=== PATIENT | female | born 1990 | race Caucasian/White ===

== ENCOUNTER → 2017-04-11 | Outpatient (CLI) | payer BC ==
--- NOTE | 2017-04-11 11:56 | DIAGNOSTIC IMAGING REPORT ---
RIGHT TIBIA/FIBULA 2 VIEWS ROUTINE CLINICAL HISTORY: PAIN IN LOWER RIGHT LEG Right pain COMPARISON: None. DISCUSSION: Cortical thickening posterior aspect mid tibial shaft associated with a small linear subcortical lucency. This is consistent with a stress fracture and or healing stress fracture. No additional anomalies are present. Bone mineralization is within normal limits. There is no evidence for soft tissue swelling. IMPRESSION: Posterior mid tibial vertical stress fracture. Electronically signed by: Dwaine Goff M.D. 04/11/2017 11:55 AM Dictated Date/Time: 04/11/2017 11:54 AM
== END | disposition home or self-care (01) ==
LOC: C.RADBC 11:27
PROVIDERS: ATTEND Family Medicine
DX: M79.661 Pain in right lower leg (principal)

== ENCOUNTER → 2017-04-16 | Outpatient (CLI) | payer BC ==
[2017-04-16 14:33] LABS: ALT/SGPT 22 U/L (12-78); BLOOD UREA NITROGEN 12 mg/dl (7-18); BUN/CREATININE RATIO 14.6 (10-20); CALCIUM 9.3 mg/dl (8.5-10.1); CARBON DIOXIDE 30 mmol/L (21-32); CHLORIDE 103 mmol/L (98-107); CHOLESTEROL 191 mg/dl (0-200); GLUCOSE 93 mg/dl (70-99); POTASSIUM 3.7 mmol/L (3.5-5.1); SODIUM 138 mmol/L (136-145); TRIGLYCERIDES 125 mg/dl (0-150); VERY LOW DENSITY LIPOPROT CALC 25 mg/dl
[2017-04-16 14:37] LABS: ALKALINE PHOSPHATASE 52 U/L (45-117); AST/SGOT 17 U/L (15-37); CHOLESTEROL/HDL RATIO 2.8; HDL CHOLESTEROL 68 mg/dl; LDL CHOLESTEROL CALCULATED 98 mg/dl
== END | disposition home or self-care (01) ==
LOC: C.LABBC 11:46
PROVIDERS: ATTEND Family Medicine
DX: Z13.1 Encounter for screening for diabetes mellitus (principal); Z13.220 Encounter for screening for lipoid disorders; Z13.228 Encounter for screening for other metabolic disorders

== ENCOUNTER → 2017-07-05 | Outpatient (CLI) | payer BC ==
[2017-07-05 18:28] LABS: URINE APPEARANCE CLEAR (CLEAR); URINE BILIRUBIN NEG (NEG); URINE COLOR YELLOW; URINE NITRITE NEG (NEG); URINE SPECIFIC GRAVITY 1.012 (1.000-1.030); UROBILINOGEN NEG (NEG)
[2017-07-05 18:37] LABS: MANUAL MICROSCOPIC REQUIRED? NO; REVIEW REQ? NO
== END | disposition home or self-care (01) ==
LOC: C.LABSPEC 17:27
PROVIDERS: ATTEND Obstetrics & Gynecology
DX: Z34.01 Encounter for supervision of normal first pregnancy, first trimester (principal)

== ENCOUNTER → 2017-07-12 | Outpatient (CLI) | payer BC ==
[2017-07-12 15:55] LABS: BASO % 0.1 %; BASO ABS # 0.01 K/uL (0-0.2); COMPLETE YES; EOS % 0.9 %; IG% 0.3 %; LYMPH % 25.2 %; LYMPH ABS # 2.31 K/uL (1.2-3.4); MEAN CELL VOLUME 84.7 fL (80-100); MEAN CORPUSCULAR HEMOGLOBIN 28.9 pg (25-34); MEAN CORPUSCULAR HGB CONC 34.2 g/dl (32-36); MEAN PLATELET VOLUME 11.1 fL (7.4-10.4); MONO % 10.9 %; NEUT % 62.6 %; PLATELET COUNT 279 K/uL (130-400); RED BLOOD COUNT 4.25 M/uL (4.2-5.4); WHITE BLOOD COUNT 9.15 K/uL (4.8-10.8)
[2017-07-16 08:20] LABS: CHLAMYDIA TRACH RNA*** NOT DETECTED (NOT DETECTED); GC (NEIS GONORRHOEAE)RNA** NOT DETECTED (NOT DETECTED)
== END | disposition home or self-care (01) ==
LOC: C.LAB1850 15:31
PROVIDERS: ATTEND Obstetrics & Gynecology
DX: Z34.01 Encounter for supervision of normal first pregnancy, first trimester (principal); Z3A.00 Weeks of gestation of pregnancy not specified

== ENCOUNTER → 2017-08-30 | Outpatient (CLI) | payer BC ==
[2017-08-30 21:31] LABS: GTGD 50 Grams
== END | disposition home or self-care (01) ==
LOC: C.LAB1850 15:56
PROVIDERS: ATTEND Obstetrics & Gynecology
DX: Z34.02 Encounter for supervision of normal first pregnancy, second trimester (principal)

== ENCOUNTER → 2017-11-26 | Outpatient (CLI) | payer BC ==
[2017-11-26 13:22] LABS: HEMATOCRIT 37.5 % (37-47); HEMOGLOBIN 12.5 g/dL (12.0-16.0)
== END | disposition home or self-care (01) ==
LOC: C.LAB1850 12:15
PROVIDERS: ATTEND Obstetrics & Gynecology
DX: Z34.03 Encounter for supervision of normal first pregnancy, third trimester (principal); Z3A.00 Weeks of gestation of pregnancy not specified

== ENCOUNTER → 2018-01-17 | Outpatient (CLI) | payer BC | END | disposition home or self-care (01) | LOC: C.LABSPEC 17:37 | PROVIDERS: ATTEND Obstetrics & Gynecology | DX: Z34.03 Encounter for supervision of normal first pregnancy, third trimester (principal) ==

== ENCOUNTER → 2018-01-31 | Outpatient (CLI) | payer BC ==
--- NOTE | 2018-01-31 16:24 | DIAGNOSTIC IMAGING REPORT ---
L VENOUS DOPP LOWER EXT UNILAT HISTORY: 27 years-old Female M79.89 Swelling of left lower [id number] acute swelling of the left lower extremity COMPARISON: None available TECHNIQUE: Multiple real-time sonographic images of the left lower extremity venous structures were obtained assessing grayscale appearance, color and spectral flow FINDINGS: There is normal flow, phasicity, compressibility and augmentation of the left lower extremity deep venous structures. Incidental note is made of a large ovoid heterogeneous structure of the left femoral tissues measuring 14.5 x 5.8 x 5.3 cm which appears to be intramuscular without internal vascularity documented. IMPRESSION: 1. No sonographic evidence of deep venous thrombosis. 2. Heterogeneous structure of the left femoral region suggests intramuscular hematoma, 14.5 cm in length. Correlate with clinical exam and patient history. The above report was generated using voice recognition software. It may contain grammatical, syntax or spelling errors. Electronically signed by: Rk White M.D. 01/31/2018 4:22 PM Dictated Date/Time: 01/31/2018 4:21 PM
== END | disposition home or self-care (01) ==
LOC: C.ULTR 15:42
PROVIDERS: ATTEND Obstetrics & Gynecology
DX: M79.89 Other specified soft tissue disorders (principal)

== ENCOUNTER 2018-02-14 03:16 | Inpatient (IN) | payer BC ==
[~2018-02-14] VITALS: Ht 167.6 cm; Wt 93.0 kg
[2018-02-14] MEDS ORDERED: LACTATED RINGER'S 1000ML 1,000 ML IV PRN (03:47)
[2018-02-14] MEDS ORDERED: PENICILLIN G POTASSIUM IV 6 MU in DEXTROSE 5% 250ML 250 ML IV ONE (04:00)
[2018-02-14 04:46] VITALS: Ht 167.6 cm; Wt 93.0 kg
[2018-02-14] MEDS ORDERED: PREN1TAB29 (04:47)
[2018-02-14 04:51] LABS: HEMATOCRIT 35.8 % (37-47); HEMOGLOBIN 12.2 g/dL (12.0-16.0); MEAN CELL VOLUME 87.1 fL (80-100); MEAN CORPUSCULAR HEMOGLOBIN 29.7 pg (25-34); MEAN CORPUSCULAR HGB CONC 34.1 g/dl (32-36); MEAN PLATELET VOLUME 11.8 fL (7.4-10.4); PLATELET COUNT 184 K/uL (130-400); RED CELL DISTRIBUTION WIDTH SD 44.6 fL (36.4-46.3); WHITE BLOOD COUNT 9.84 K/uL (4.8-10.8)
[2018-02-14 05:17] LABS: ALBUMIN 2.3 gm/dl (3.4-5.0); CALCIUM 8.1 mg/dl (8.5-10.1); CREATININE 0.87 mg/dl (0.60-1.20); POTASSIUM 4.2 mmol/L (3.5-5.1); TOTAL PROTEIN 6.4 gm/dl (6.4-8.2)
[2018-02-14] MEDS: LACTATED RINGER'S 1000ML 1,000 ML IV SCH ×2 (07:10→11:24)
[2018-02-14] MEDS ORDERED: LACTATED RINGER'S 1000ML 500 ML IV PRN ×2 (07:22→08:20)
[2018-02-14] MEDS ORDERED: OXYTOCIN 30 UNITS/500ML NSS IV PRN ×2 (07:30→17:00)
[2018-02-14] MEDS ORDERED: EpHEDrine SULFATE INJ 50 MG/ML AMP ONE (07:41)
[2018-02-14] MEDS ORDERED: BUPIVACAINE 0.25% 30 ML VIAL ONE (07:41)
[2018-02-14] MEDS ORDERED: FENTANYL 2MCG/ML ROPIV 1.25MG/ML 100ML BAG ONE (07:42)
[2018-02-14] MEDS ORDERED: FENTANYL CITRATE INJ 50 MCG/1 ML 2 ML VIAL ONE (07:42)
[2018-02-14] MEDS ORDERED: NALOXONE HCL INJ 1 MG in SODIUM CHLORIDE 0.9% 1000ML 1,000 ML IV PRN (08:20)
[2018-02-14] MEDS ORDERED: DiphenhydrAMINE HCL 50 MG/ML VIAL IV PRN (08:30)
[2018-02-14] MEDS ORDERED: ONDANSETRON INJ 2 MG/ML 2 ML VIAL IV PRN (08:30)
[2018-02-14] MEDS ORDERED: NALOXONE HCL INJ 0.4 MG/1 ML VIAL/CARP IV PRN (08:30)
[2018-02-14] MEDS ORDERED: NALBUPHINE HCL INJ 10 MG/ML AMP IV PRN (08:30)
[2018-02-14] MEDS ORDERED: EpHEDrine SULFATE INJ 50 MG/ML AMP IV PRN (08:30)
[2018-02-14] MEDS ORDERED: FENTANYL 2MCG/ML ROPIV 1.25MG/ML 100ML BAG EPI PRN (08:30)
[2018-02-14] MEDS: PENICILLIN G POTASSIUM IV 3 MU in DEXTROSE 5% 100ML 100 ML IV PRN ×2 (08:32→12:17)
[2018-02-14] MEDS ORDERED: METHYLERGONOVINE MALEATE 0.2 MG/ML AMP ONE (16:40)
[2018-02-14] MEDS ORDERED: HYDROCORTISONE ACETATE 25 MG SUPP PR PRN (17:00)
[2018-02-14] MEDS ORDERED: SUPERCREAM 0.870 % 15GM JAR EXT PRN (17:00)
[2018-02-14] MEDS ORDERED: BENZOCAINE 20% AER SPR 82.5 GM CAN EXT PRN (17:00)
[2018-02-14] MEDS ORDERED: LANOLIN OINT EXT PRN (17:00)
[2018-02-14] MEDS ORDERED: ACETAMINOPHEN 325 MG TAB PO PRN (17:00)
[2018-02-14] MEDS ORDERED: DIPHTHERIA/TETANUS/PERTUSSIS 0.5 ML SYR/VIAL IM. ONE (17:00)
[2018-02-14] MEDS ORDERED: ACETAMINOPHEN/CODEINE 300/30MG TAB PO PRN ×2 (17:00)
--- NOTE | 2018-02-14 17:53 | Anesthesia Procedure Note ---
Anesthesia Epidural Removal Nt Date & Time February 14, 2018 at 17:53 Notes Mental Status: alert / awake / arousable, participated in evaluation Nausea / Vomiting: adequately controlled Pain: adequately controlled Airway Patency, RR, SpO2: stable & adequate BP & HR: stable & adequate Hydration State: stable & adequate Neuraxial Anesthesia: was administered, sensory block is resolving Anesthetic Complications: no major complications apparent, pt satisfied with anesthetic care Epidural: removed without complications, with tip intact
--- NOTE | 2018-02-14 18:06 | DELIVERY SUMMARY ---
DATE OF OPERATION: 02/14/2018 FINDINGS: Viable male infant with Apgars of 4 at 1 minute, 6 at 5 minutes, 8 at 10 minutes and a weight of 7 pounds 10 ounces. Baby delivered by vacuum extraction for maternal exhaustion. Thick meconium. Nuchal cord x5, reduced on the perineum. Cord gasses, cord blood samples obtained. Placenta delivered spontaneously. Midline episiotomy and less sulcus tear repair with 4-0 Vicryl. ESTIMATED BLOOD LOSS: 300 mL. LABOR NOTE: The patient is a 27-year-old 1, para 0, with an EDC of 02/11/2018 at 40+ weeks gestational age, who presented to labor and delivery at 0230 hours on the day of delivery with spontaneous rupture of membranes. The patient states that the fluid was green. She began to have some contractions after the rupture of membranes. The patient's course was remarkable for some left lower extremity edema. She had negative Doppler studies, but a small hematoma was incidentally found in the left thigh. The patient was GBS positive. Upon admission, the patient was 3 to 4 cm dilated, 90% effaced, -2 station, with green particulate meconium. The patient is Rh negative and had received RhoGAM. Tracing was category I. The patient was initially monitored expectantly. Three hours later, there had been no change in the patient's cervix. Tracing was category II with moderate variability, with no decels, accelerations with scalp stimulation. Epidural was placed at that time. Contractions spaced out, and Pitocin was initiated for loss of contractions after the epidural. Delivering physician assumed care for the patient at this point. The patient made slow progress to full dilatation and began her second stage. After pushing for an hour, the baby was found to be in a direct OP presentation. The vertex was manually rotated to an SANTHOSH presentation, and the patient continued her second stage, pushed for another hour, and brought the vertex down to +2/+3 station. At this point, the patient was exhausted and could not push effectively anymore. Verbal consent was obtained for vacuum extraction for maternal exhaustion. Over 3 pulls, the baby was delivered over a midline episiotomy. Nuchal cord x5 was reduced on the perineum. Baby was delivered, cord was clamped and cut, and the baby was passed off to the animation artist who was in attendance for the delivery. Cord gasses and cord blood samples obtained. Placenta was delivered spontaneously and sent for pathological evaluation. Inspection of the perineum showed a midline episiotomy with a left sulcus tear. The sulcus tear and episiotomies were both repaired with 4-0 Vicryl. Estimated blood loss 500 mL. Sponge and needle counts were correct. I attest to the content of the Intraoperative Record and any orders documented therein. Any exception s are noted below.
[2018-02-14] MEDS ORDERED: METHYLERGONOVINE MALEATE 0.2 MG/ML AMP IM ONE (18:15)
[2018-02-14 20:35] VITALS: BP 135/88; PULSE 93; TEMP 37.1; O2SAT 98
[2018-02-14] MEDS: DOCUSATE SODIUM 100 MG CAP PO SCH (21:33)
[2018-02-14] MEDS: IBUPROFEN 600 MG TAB PO PRN (21:34)
[2018-02-15] VITALS (7 sets, daily range): BP systolic 123–148; BP diastolic 79–91; PULSE 88–98; TEMP 36.4–36.8; O2SAT 97–98
--- NOTE | 2018-02-15 06:37 | Progress Note ---
Subjective February 15, 2018. Subjective conversation w/ patient Ambulation: ambulating normally Voiding: no voiding problems Diet Tolerance: Regular Diet Lochia: Moderate Feeding Type: Breast Feeding Pain: 2/10 pain, improved with analgesia Review of Systems Constitutional: No fever, No chills Respiratory: No shortness of breath Cardiac: No chest pain Abdomen: No nausea, No vomiting Objective Vital Signs Date Time Temp Pulse Resp B/P (MAP) Pulse Ox O2 Delivery O2 Flow Rate FiO2 02/15/18 03:10 36.4 98 18 148/81 (103) 98 Room Air 02/15/18 00:25 97 Room Air 02/15/18 00:25 36.8 90 16 147/88 (107) 97 Room Air 02/14/18 20:35 37.1 93 16 135/88 (104) 98 Room Air 02/14/18 20:35 98 Room Air Physical Exam General Appearance: WELL-APPEARING, WD/WN, NO APPARENT DISTRESS Respiratory/Chest: lungs clear, normal breath sounds Cardiovascular: regular rate, rhythm Abdomen: soft Fundus: Firm, Non-Tender, Relation to Umbilicus (at u) Extremities: no calf tenderness, + pedal edema Laboratory Results Last 24 Hours Test 02/15/18 06:01 Assessment and Plan Post- Day#: 1 Continue Routine Care: 27F s/p vaginal delivery w/vacuum assistance & midline episiotomy w/left sulcus tear day 1 - A-, Rubella Immune, GBS +ve - pt will require rhogam as baby is A+ - pt doing well clinically - Vital signs reviewed - BP elevated at 147/81 - below threshold to treat - will monitor - Encourage ambulation, monitor and control pain with Motrin PRN - Encourage breast feeding Resident Physician Supervision Note: I interviewed and examined the patient. Discussed with Dr. Best and agree with findings and plan as documented in the note. Any exceptions or clarifications are listed here: Discussed delivery and findings with augusto, reviewed cord gasses. Will monitor BP, routine PP care Documented By: Rodney Crawley Resident Tracking Resident Involvement: Resident Care Provided Care Provided: OB Delivery
--- NOTE | 2018-02-15 07:00 | Discharge Instructions ---
Discharge Instructions Date of Service February 15, 2018. Admission Reason for Admission: 40 Weeks Gestation Of , Amniotic Fluid Discharge Discharge Diagnosis / Problem: Vaginal Delivery Discharge Goals Goal(s): Routine recovery after delivery Medications Continue Dispensed Medications: supercream, dermaplast, tucks, lansinoh Activity Recommendations Activity Limitations: per Instructions/Follow-up section . Instructions / Follow-Up Instructions / Follow-Up ACTIVITY RECOMMENDATIONS: * Gradual return to full activity over the next 2-3 weeks. * No lifting - nothing heavier than baby over the next 2-3 weeks. * Do not engage in vigorous exercise, sexual activity or sports until cleared by your physician. * Do not drive or operate any motorized equipment until cleared by your physician. * You may shower/bathe daily. MEDICATIONS: For discomfort or pain, you may use Acetaminophen (Tylenol), Ibuprofen (Advil), or Naproxen (Aleve) following the package directions. For constipation you may use Colace following the package directions. BREAST CARE: If you are not breast feeding: * Wear a supportive bra 24 hours a day for one to two weeks. * Avoid stimulating your breasts and nipples as much as possible during the first few weeks after delivery. * When taking a shower, have the warm water hit your back, not breasts. * When your breasts feel full, apply ice packs. Usually three to four times a day helps ease the discomfort. * Take a mild pain medication (Tylenol / Motrin) when you are uncomfortable. If breast feeding: * Use breast milk to lubricate nipples. Lansinoh cream may be used for sore nipples. You do not need to remove cream prior to breast feeding. If using a different brand of cream, check the label for directions regarding removal of cream prior to nursing. * Wear a supportive bra. * If having problems with breasts or breast feeding, call a marketing regional consultant or your health care provider. EPISIOTOMY CARE: After delivery, if you have an episiotomy (stitches), the following steps will ease discomfort and aid healing. * For the first 24 hours after delivery, place ice packs next to your episiotomy to help reduce swelling. * After the first 24 hour-period, sitz baths, either portable or in the tub, are suggested. A shower with a shower arm sprayed over the episiotomy may be comforting. * Ida care should be done after each voiding and bowel movement. Squirt warm water from a plastic bottle over the perineum (region of the body between the anus and urinary opening) and pat dry. * Use Dermoplast to ease discomfort. Shake container. [place] directly over the episiotomy. Place a Tucks on a clean sanitary pad next to your episiotomy. SPECIAL CARE INSTRUCTIONS: When you are discharged from the hospital, it is important for you to follow the instructions listed below: * During the first week at home, you should be able to care for yourself and your baby. In addition, the usual light household activities are encouraged. * Limit your activities to the way you feel. Do not try to clean the house or move furniture. Be sensible. * If you actively engage in sports and have done so up until the time of your delivery, you may resume these activities as soon as you feel able. This may take up to one month or even longer. Use good judgment. * Continue to take your vitamins for at least six weeks after the of your baby. * Your diet need not be limited unless you were on a special diet before your delivery. Breast-feeding mothers need around 2500 calories per day and at least 64-80 ounces of fluid per day (8 to 10 glasses). * You should eat foods from the four major food groups. Crash diets or fad diets are to be avoided. Eating lean meats, fresh fruits and vegetables, low-fat dairy products, high fiber foods and a regular exercise program, will help you get back to your pre- weight without putting your health at risk. * Constipation is sometimes a problem after delivery. Take a mild laxative as needed. If breast feeding, Milk of Magnesia is acceptable to use. You may use a suppository or Fleets enema if no episiotomy. * A daily shower or tub bath is suggested. Be sure to thoroughly and gently dry the perineum. * A bloody vaginal discharge will usually continue until around four weeks post . A small amount of bleeding may continue for as long as six weeks. Vaginal discharge changes from the bright red bleeding after delivery to pink then brownish and finally yellowish-pink before becoming white and disappearing. * Bleeding may increase with activity. Your first period may come in 4-8 weeks. If you are breast feeding, your period may be delayed even longer. * [place] (sex) can begin whenever both you and your partner feel comfortable and do not have any form of genital infection. It is recommended that you wait at least six weeks for internal and external healing to occur. If you have questions, please talk to your health care practitioner. A condom should be used to prevent infection and . * Foreplay, gentle intercourse and lubrication is very important the first several times to prevent pain. A water-based lubricant such as K-Y jelly or Astroglide may be used. * If you have RH negative blood and your baby is RH positive, you will receive RHOGAM by injection prior to discharge. The nurse will give you a card to keep with you that has the date and place that you received RHOGAM after delivery. * During your care, you had a Rubella screen done to check for the presence of rubella antibodies in your blood. If your test was negative, you will receive a Rubella vaccine prior to discharge. This vaccine may cause a fever, soreness at the injection site and flu-like symptoms. If these symptoms persist, notify your health care practitioner. is not advised for one month after a Rubella vaccine. * Verbalizes understanding of car seat law as reviewed with patient nursing. * Car Seat hand-out given and reviewed with patient by nursing. * Shaken baby information reviewed with patient by nursing. Call you doctor if: * Heavy bleeding (saturating several pads an hour) or passing clots the size of your fist. * A fever >101 degrees F (38.3 degrees C) on two occasions four hours apart and /or chills. * Unusual pain in the pelvic or vaginal areas. * "Baby Blues" lasting longer than two weeks. If you have any questions or concerns, call your health care practitioner at . FOLLOW UP VISIT: * Please call the office at to schedule a 6 week examination. It is important you keep this appointment. It is important for you to make arrangements for either yearly or twice yearly check-ups thereafter. Current Hospital Diet Patient's current hospital diet: Regular OB Diet Discharge Diet Recommended Diet: Regular Diet Pending Studies Studies pending at discharge: no Medical Emergencies . Who to Call and When: Medical Emergencies: If at any time you feel your situation is an emergency, please call 911 immediately. . Non-Emergent Contact Non-Emergency issues call your: Primary Care Provider . . "Provider Documentation" section prepared by Semaj Best. .
[2018-02-15 07:07] LABS: HEMATOCRIT 29.2 % (37-47); HEMOGLOBIN 10.1 g/dL (12.0-16.0)
[2018-02-15] MEDS: PRENATAL VITAMIN TAB PO SCH (08:47)
[2018-02-15] MEDS: DOCUSATE SODIUM 100 MG CAP PO SCH ×2 (08:47→20:53)
[2018-02-15] MEDS: IBUPROFEN 600 MG TAB PO PRN ×2 (17:30→23:31)
[2018-02-15] MEDS ORDERED: BISACODYL 5 MG TABEC PO SCH (20:00)
[2018-02-16 06:32] LABS: HEMATOCRIT 28.3 % (37-47); HEMOGLOBIN 9.6 g/dL (12.0-16.0); MEAN CELL VOLUME 87.1 fL (80-100); MEAN CORPUSCULAR HEMOGLOBIN 29.5 pg (25-34); MEAN CORPUSCULAR HGB CONC 33.9 g/dl (32-36); MEAN PLATELET VOLUME 11.2 fL (7.4-10.4); PLATELET COUNT 168 K/uL (130-400); RED CELL DISTRIBUTION WIDTH CV 14.1 % (11.5-14.5); RED CELL DISTRIBUTION WIDTH SD 44.7 fL (36.4-46.3); WHITE BLOOD COUNT 11.81 K/uL (4.8-10.8)
[2018-02-16] MEDS ORDERED: BISACODYL 10 MG SUPP PR PRN (07:00)
[2018-02-16] MEDS: IBUPROFEN 600 MG TAB PO PRN ×3 (08:10→20:06)
[2018-02-16] MEDS: PRENATAL VITAMIN TAB PO SCH (08:10)
[2018-02-16] MEDS: DOCUSATE SODIUM 100 MG CAP PO SCH ×2 (08:10→20:05)
[2018-02-16 08:17] VITALS: BP 125/82; PULSE 96; TEMP 37.1
--- NOTE | 2018-02-16 08:44 | Progress Note ---
Subjective February 16, 2018. Subjective conversation w/ patient, physical exam Ambulation: ambulating normally Voiding: no voiding problems Passing Gas: Yes Diet Tolerance: Regular Diet Lochia: Small Feeding Type: Breast Feeding Comment: having right knee & calf pain. pain starts just above knee cap & radiates around it. has hematoma in medial thigh area noted on doppler of her left leg January 31. Review of Systems Constitutional: No fever, No chills, No sweats, No weight loss, No weakness, No fatigue, No problem reported Breast: No see HPI, No breast lump, No change in shape, No nipple discharge, No breast pain, No problem reported Abdomen: No pain, No nausea, No vomiting, No diarrhea, No constipation, No GI bleeding, No problem reported Female : No see HPI, No dysuria, No urinary frequency, No hematuria, No incontinence, No abnormal vaginal bleeding, No vaginal discharge, No problem reported Objective Vital Signs Date Time Temp Pulse Resp B/P (MAP) Pulse Ox O2 Delivery O2 Flow Rate FiO2 02/16/18 08:17 37.1 96 20 125/82 (96) Room Air 02/16/18 08:00 Room Air 02/15/18 23:30 36.6 88 18 136/87 (103) Room Air 02/15/18 23:30 Room Air 02/15/18 21:00 138/91 (107) 02/15/18 15:30 Room Air 02/15/18 15:30 36.5 88 20 147/86 (106) Room Air 02/15/18 12:40 36.8 94 16 138/89 (105) Room Air Physical Exam General Appearance: WELL-APPEARING, NO APPARENT DISTRESS Abdomen: soft Fundus: Firm, Non-Tender, Relation to Umbilicus (2 below U) Extremities: normal range of motion, + calf tenderness (some calf tenderness just inferior to left knee. no cords or swelling present. notable mass that is firm ins medial left thigh that is not tender) Laboratory Results Last 24 Hours Test 02/16/18 06:16 White Blood Count 11.81 K/uL Red Blood Count 3.25 M/uL Hemoglobin 9.6 g/dL Hematocrit 28.3 % Mean Corpuscular Volume 87.1 fL Mean Corpuscular Hemoglobin 29.5 pg Mean Corpuscular Hemoglobin Concent 33.9 g/dl RDW Standard Deviation 44.7 fL RDW Coefficient of Variation 14.1 % Platelet Count 168 K/uL Mean Platelet Volume 11.2 fL Assessment and Plan Post- Day#: 2 Continue Routine Care: left calf pain in same leg as medial thigh hematoma. patient feels the hematoma was because of her dog jumping on her. will repeat left leg doppler to rule out DVT. if negative will have her follow up with PCP for further evaluation & treatment. discharge to home pending doppler results
--- NOTE | 2018-02-16 09:58 | DIAGNOSTIC IMAGING REPORT ---
ULTRASOUND L VENOUS DOPP LOWER EXT UNILAT CLINICAL HISTORY: Left leg pain. HISTORY OF INTRAMUSCULAR HEMATOMA. COMPARISON STUDY: No previous studies for comparison. FINDINGS: Real-time and color flow Doppler imaging were performed. Flow was seen within the femoral, popliteal and calf veins with no intraluminal thrombus demonstrated. The saphenous vein is patent. There is a complex left medial thigh mass measuring 15.3 x 6.3 x 6.5 cm. This represents a very slight interval increase in size when compared the preceding study. The mass demonstrates some internal flow, and is therefore indeterminate. IMPRESSION: 1. No evidence of left lower extremity DVT 2. Slight interval increase in the size of the complex left medial thigh mass, currently measuring 15.3 x 6.3 x 6.5 cm. On today's examination this demonstrates internal vascularity, and is therefore indeterminate. Electronically signed by: Diaz Falk M.D. 02/16/2018 9:57 AM Dictated Date/Time: 02/16/2018 9:54 AM
[2018-02-16 15:30] VITALS: BP 132/86; PULSE 98; TEMP 36.7
[2018-02-16 19:15] VITALS: BP_DIAS 86; PULSE 98; TEMP 36.7
== END 2018-02-16 20:45 | disposition home or self-care (01) | DRG 775 ==
LOC: C.LD 03:16 → C.OPB 03:16 → C.LD 03:50 → C.OPB 03:53 → C.OBG 19:44
PROVIDERS: ADMIT Obstetrics & Gynecology; ATTEND Obstetrics & Gynecology
PROC: 10D07Z6 Extraction of Products of Conception, Vacuum, Via Natural or Artificial Opening (ICD-10-PCS; principal; 2018-02-14)
PROC: 0W8NXZZ Division of Female Perineum, External Approach (ICD-10-PCS; principal; 2018-02-14)
PROC: 0HQ9XZZ Repair Perineum Skin, External Approach (ICD-10-PCS; principal; 2018-02-14)
PROC: 10S07ZZ Reposition Products of Conception, Via Natural or Artificial Opening (ICD-10-PCS; 2018-02-14)
DX: O75.81 Maternal exhaustion complicating labor and delivery (principal); O36.0930 Maternal care for other rhesus isoimmunization, third trimester, not applicable or unspecified; O70.0 First degree perineal laceration during delivery; O77.0 Labor and delivery complicated by meconium in amniotic fluid; O32.9XX0 Maternal care for malpresentation of fetus, unspecified, not applicable or unspecified; O69.81X0 Labor and delivery complicated by cord around neck, without compression, not applicable or unspecified; O26.893 Other specified pregnancy related conditions, third trimester; Z22.330 Carrier of Group B streptococcus; Z3A.40 40 weeks gestation of pregnancy; Z37.0 Single live birth

== ENCOUNTER 2020-12-12 07:43 | Inpatient (IN) ==
[2020-12-12] MEDS ORDERED: OXYTOCIN 30 UNITS/500 ML BAG IV PRN ×3 (07:58→18:42)
--- NOTE | 2020-12-12 07:58 | History & Physical Report ---
Date of Service December 12, 2020 Assessment & Plan (1) Post-dates : (2) Group beta Strep positive: (3) Encounter for elective induction of labor: admit, iv, labs. plan pitocin induction. fhts categ 1. gbs pos, pcn. plan arom Admission and Anticipated Discharge Date Admission Date: December 12, 2020 History of Present Illness Chief Complaint: planned induction Primary Care Provider: NO PCP 30yo at 40+ega presents to L&D for planned elective induction. No rom, vb. +FM.No ctx. PNC c/b 1. rh neg, had rhogam eval pp 2. gbs positive, pcn in labor 3. sarcoma of left thigh 2018 PNL rh pos, ri, gbs neg. OBH: x 1 GYNH: nl paps, no stds Allergies Allergy/AdvReac Type Severity Reaction Status Date / Time No Known Drug Allergies Allergy Unknown Verified 12/11/20 19:09 Home Medications Medication Instructions Recorded Confirmed Type prenat.vits,oral,[id number] 1 tab PO DAILY 04/30/19 12/11/20 History desoximetasone 0.25 % topical cream 1 applic TOP BID #60 gm 11/03/20 12/11/20 Rx Patient History Medical History (Updated 12/12/20 @ 08:11 by Tanja Hernandez MD, FACOG) H/O sarcoma of soft tissue left thigh 2018 (normal spontaneous vaginal delivery) 02/14/18 C Surgical History (Updated 12/12/20 @ 08:10 by Tanja Hernandez MD, FACOG) H/O oral surgery [place] teeth History of excision of mass sarcoma removed. Family History (Updated 04/20/20 @ 07:46 by Krista Couch) Father Ulcerative colitis Grandmother (Maternal) Breast cancer Social History (Updated 04/20/20 @ 13:24 by Krista Couch) Smoking Status: Former smoker Hx Alcohol Use: No Hx Substance Use: No Preferred Language: Slovenian marital status: marital status details: Teja (34) [phone] Current Living Situation: Spouse and Family Current Living Situation Comment: lives with spouse, son, 1 dog. current occupational status: employed current occupation: [employer]. Feels Safe at Home: Yes Physical Exam Constitutional: WD/WN, vitals as above Respiratory: normal respiratory effort, lungs clear to auscultation Cardiovascular: Rate/Rhythm: regular rate and regular rhythm Gastrointestinal (Abdomen): soft gravid nt, efw 8-9# Musculoskeletal: no edema nontender calves Neurologic: grossly normal Psychiatric: A+Ox3, euthymic affect Genitourinary: Manual OB Exam: + cervical dilation 3 cm, + cervical effacement 70% and + station high OB Exam Monitor Tracing: + external FHT monitor used (130 mod variability), + external uterine monitor used (irreg), + category I and + normal FHT variability Results & Data ([facility]) Vital Signs (Past 12 Hours) Vital Signs Pulse BP 12/12/20 07:52 115 H 117/75 Coding Level of Care Code None Diagnoses Post-dates O48.0 Group beta Strep positive B95.1 Encounter for elective induction of labor Z34.90
[2020-12-12] MEDS ORDERED: PENICILLIN G POTASSIUM 6 MU in DEXTROSE 5% 250 ML IV STA (08:10)
[2020-12-12 08:27] LABS: Hematocrit (blood only) 37.7 % (37-47); Hemoglobin 13.1 g/dL (12.0-16.0); Mean Corpuscular Hemoglobin 30.2 pg (25-34); Mean Corpuscular Hgb Conc 34.7 g/dL (32-36); Mean Corpuscular Volume 86.9 fL (80-100); Mean Platelet Volume 11.2 fL (7.4-10.4); Platelet Count 250 K/uL (130-400); RDW Coefficient of Variation 13.7 % (11.5-14.5); RDW Standard Deviation 43.8 fL (36.4-46.3); Red Blood Count 4.34 M/uL (4.2-5.4); White Blood Count 7.41 K/uL (4.8-10.8)
[2020-12-12] MEDS: LACTATED RINGER'S 1,000 ML IV PRN ×2 (08:33→15:02)
[2020-12-12] MEDS: PENICILLIN G POTASSIUM 3 MU in DEXTROSE 5% 100 ML IV PRN ×2 (12:23→16:30)
--- NOTE | 2020-12-12 13:36 | Labor Progress Brief Note ---
Date of Service December 12, 2020 Subjective Reason For Note: Routine Evaluation comfortable, feels ctx but not strong. pit at 13 Assessment & Plan (1) Post-dates : (2) Encounter for elective induction of labor: (3) Group beta Strep positive: will see how arom helps ctx pattern, fhts categ 1. c/w pitocin and pcn Admission and Anticipated Discharge Date Admission Date: December 12, 2020 Physical Exam Constitutional: WD/WN, vitals as above Genitourinary: Manual OB Exam: + cervical dilation 3 cm, + cervical effacement 70%, + station -2 and + amniotic fluid clear OB Exam Monitor Tracing: + external FHT monitor used (125 mod variability), + external uterine monitor used (q1-3), + category I and + normal FHT variability Results & Data ([facility]) Vital Signs (Past 12 Hours) Vital Signs Temp Pulse Resp BP 12/12/20 12:40 91 H 113/63 12/12/20 12:26 98.2 F 16 12/12/20 11:41 88 99/58 L 12/12/20 10:41 83 16 101/54 L 12/12/20 09:39 97 H 18 114/74 12/12/20 07:52 98.4 F 115 H 20 117/75 Coding Level of Care Code None Diagnoses Post-dates O48.0 Encounter for elective induction of labor Z34.90 Group beta Strep positive B95.1
[2020-12-12] MEDS ORDERED: ePHEDrine sulfate 50 MG/ML AMP IV PRN (14:35)
[2020-12-12] MEDS ORDERED: NALOXONE HCL 0.4 MG/1 ML VIAL/CARP IV PRN (14:35)
[2020-12-12] MEDS ORDERED: diphenhydrAMINE 50 MG/ML VIAL IV PRN (14:35)
[2020-12-12] MEDS ORDERED: NALOXONE HCL 1 MG in SODIUM CHLORIDE 0.9% 1000ML 1,000 ML IV PRN (14:35)
[2020-12-12] MEDS ORDERED: fentaNYL 2MCG/ML ROPIVACAINE 1.25MG/ML 100 ML BAG EPI PRN (14:35)
[2020-12-12] MEDS ORDERED: ONDANSETRON INJ 2 MG/ML 2 ML VIAL IV PRN (14:35)
--- NOTE | 2020-12-12 14:37 | Anesthesiology Consultation ---
Date of Service December 12, 2020 Assessment & Plan (1) Encounter for pre-operative examination: Chart Review Chart Review: Patient NOT seen in Pre Admission Testing and Acceptable Risk for Labor Epidural Consults Requested none History Height/Weight Height: 5 ft 7 in Weight: 97.522 kg Allergies Allergy/AdvReac Type Severity Reaction Status Date / Time No Known Drug Allergies Allergy Unknown Verified 12/11/20 19:09 Medications Home Medications Medication Instructions Recorded Confirmed Last Taken desoximetasone 0.25 % topical cream 1 applic TOP BID #60 gm 11/03/20 12/12/20 Unknown prenat.vits,oral,vkm-pivi-dcoes 1 tab PO DAILY 12/12/20 12/12/20 12/11/20 08:00 [ Vitamin] Active Medications Generic Name Dose Route Start Last Admin Trade Name Freq PRN Reason Stop Dose Admin Oxytocin 30 units in 500 mls @ 13 mls/hr 12/12/20 07:58 12/12/20 12:45 Pitocin IV 12/14/20 07:57 0.78 units/hr .Q24H PRN 13 mls/hr Labor Induction/Augmentation Titration Protocol 0.78 UNITS/HR Lactated Ringer's 1,000 mls @ 125 mls/hr 12/12/20 07:58 12/12/20 14:34 Lr IV 12/14/20 07:57 999 mls/hr .Q8H PRN Infusion L&D Protocol Protocol Penicillin G Potassium 3 mu/ 106 mls @ 100 mls/hr 12/12/20 08:06 12/12/20 12:23 Dextrose IV 12/22/20 08:05 100 mls/hr Q4H PRN Administration Give until delivery Past Medical History Medical History H/O sarcoma of soft tissue left thigh 2017 (normal spontaneous vaginal delivery) 02/14/18 [facility] Exercise / Class Metabolic Activity II 4-5 Yardwork/Stairs/Walk up hill Past Family History Family History Father Ulcerative colitis Grandmother (Maternal) Breast cancer Past Surgical History Surgical History H/O oral surgery [place] teeth History of excision of mass sarcoma removed. S/P LASIK surgery of both eyes (~11/05/18) Past Anesthesia History No Hx of Anesthesia Complications and No Family Hx of Anesthesia Complications History of PONV No Hx of PONV and No Hx of Motion Sickness Social History Smoking Status: Former smoker Do You Dip or Chew Tobacco: No Hx Alcohol Use: No Hx Substance Use: No substance use type: does not use Physical Exam Vital Signs Last Vital Signs Temp 36.9 C 12/12/20 13:40 Pulse 109 H 12/12/20 13:40 Resp 20 12/12/20 13:40 BP 119/71 12/12/20 13:40 Testing Laboratory Results 12/12/20 08:11
[2020-12-12] MEDS ORDERED: ePHEDrine sulfate 50 MG/ML AMP ONE (14:39)
[2020-12-12] MEDS ORDERED: SODIUM CHLORIDE 0.9% INJ 10 ML VIAL ONE (14:39)
[2020-12-12] MEDS ORDERED: BUPIVACAINE 0.25% 30 ML VIAL ONE (14:40)
[2020-12-12] MEDS ORDERED: fentaNYL 2MCG/ML ROPIVACAINE 1.25MG/ML 100 ML BAG EPI ONE (14:40)
[2020-12-12] MEDS ORDERED: fentaNYL citrate 100 MCG/2 ML VIAL ONE (14:40)
[2020-12-12] MEDS ORDERED: HYDROCORTISONE ACETATE 25 MG SUPP PR PRN (17:48)
[2020-12-12] MEDS ORDERED: ACETAMINOPHEN 325 MG TAB PO PRN (17:48)
[2020-12-12] MEDS ORDERED: oxyCODONE/ACETAMINOPHEN 5mg/325mg TAB PO PRN (17:48)
[2020-12-12] MEDS ORDERED: SUPERCREAM 0.870% 15 GM JAR EXT PRN (17:48)
--- NOTE | 2020-12-12 17:53 | Delivery Summary ---
Vaginal Delivery Summary Date of Service December 12, 2020 Vaginal Delivery Summary and 2nd Degree LAC The patient dilated to complete and pushed to deliver a viable female infant Apgars 8 and 8 via over mediolateral episiotomy cut after informed consent. cephalic delivered and moderate shoulder dystocia encountered relieved by Nimesh maneuvers, suprapubic pressure, gentle downward traction and effective maternal expulsive efforts. Mouth and nose bulb suctioned and infant cried at . Cord clamped and to maternal abdomen for drying and attention. The cord was then doubly clamped and cut. Placenta delivered spontaneously and intact, three-vessel cord. Hemostasis achieved with dilute pitocin and uterine massage and drainage of the bladder for approximately 70 cc under sterile conditions. Cervix and sulci intact. Episotomy did not extend and was soraya pproximated in layers in the routine fashion with 3-0 vicryl. EBL 300 cc. Mother and baby stable recovery. Circumstances of delivery and shoulder dystocia and how it was managed explained to mother at length and she denied any further questions or concerns. [facility] [place] Charge Delivery Type Details: and 2nd Degree LAC
[2020-12-12] MEDS ORDERED: OXYTOCIN 20 UNITS in LACTATED RINGER'S 1,000 ML IV SCH (18:00)
--- NOTE | 2020-12-12 18:11 | Anesthesiology Progress Note ---
Date of Service December 12, 2020 Anesthesia Post Procedure Vital Signs Vital Signs: Temp Pulse Resp BP Pulse Ox 12/12/20 18:07 112 H 96 12/12/20 18:02 117 H 132/84 96 12/12/20 17:57 113 H 96 12/12/20 17:52 120 H 96 12/12/20 17:47 114 H 18 125/70 96 12/12/20 17:42 119 H 97 12/12/20 17:38 130 H 122/80 12/12/20 17:37 128 H 97 12/12/20 17:32 133 H 97 12/12/20 17:27 165 H 97 12/12/20 17:21 158 H 92 12/12/20 17:20 137 H 97 12/12/20 17:15 118 H 89 L 12/12/20 17:11 124 H 91 12/12/20 17:10 125 H 98 12/12/20 17:08 131 H 133/63 12/12/20 17:05 125 H 91 12/12/20 17:00 118 H 97 12/12/20 16:57 123 H 91 12/12/20 16:55 131 H 155/87 H 94 12/12/20 16:52 113 H 91 12/12/20 16:50 117 H 96 12/12/20 16:47 120 H 89 L 12/12/20 16:45 119 H 98 12/12/20 16:40 112 H 98 12/12/20 16:39 113 H 150/124 H 12/12/20 16:35 114 H 98 12/12/20 16:30 112 H 99 12/12/20 16:25 110 H 129/73 98 12/12/20 16:20 103 H 100 12/12/20 16:15 94 H 96 12/12/20 16:10 97 H 97 12/12/20 16:08 107 H 117/80 12/12/20 16:05 94 H 98 12/12/20 16:00 95 H 18 97 12/12/20 15:55 96 H 98 12/12/20 15:50 93 H 101/51 L 97 12/12/20 15:46 90 110/53 L 12/12/20 15:45 91 H 97 12/12/20 15:40 94 H 97/52 L 97 12/12/20 15:36 91 H 105/56 L 12/12/20 15:35 92 H 98 12/12/20 15:31 93 H 104/57 L 12/12/20 15:30 36.8 C 90 18 97 12/12/20 15:25 98 H 98 12/12/20 15:24 105 H 100/57 L 12/12/20 15:22 93 H 95/54 L 12/12/20 15:20 100 H 102/55 L 98 12/12/20 15:18 99 H 113/53 L 12/12/20 15:16 96 H 100/56 L 12/12/20 15:15 96 H 98 12/12/20 15:14 96 H 92/54 L 12/12/20 15:12 98 H 97/54 L 12/12/20 15:10 105 H 97/56 L 99 12/12/20 15:08 102 H 102/60 12/12/20 15:06 100 H 105/55 L 12/12/20 15:05 96 H 97 12/12/20 15:04 91 H 108/55 L 12/12/20 15:02 93 H 105/58 L 12/12/20 15:00 104 H 104/69 99 12/12/20 14:58 93 H 112/76 12/12/20 14:55 101 H 98 12/12/20 14:50 92 H 97 12/12/20 14:45 93 H 98 12/12/20 13:40 36.9 C 109 H 20 119/71 12/12/20 12:40 91 H 113/63 12/12/20 12:26 36.8 C 16 12/12/20 11:41 88 99/58 L 12/12/20 10:41 83 16 101/54 L 12/12/20 09:39 97 H 18 114/74 12/12/20 07:52 36.9 C 115 H 20 117/75 Pain Intensity Abdomen: Pain Intensity: 6 Transfer of Care Handoff Completed per policy Notes Mental Status: alert / awake / arousable and participated in evaluation Patient Amnestic to Procedure: Yes Nausea / Vomiting: adequately controlled Pain: adequately controlled Airway Patency, RR, SpO2: stable & adequate BP & HR: stable & adequate Hydration State: stable & adequate Anesthetic Complications: no major complications apparent and Pt Satisfied with anesthetic care
[2020-12-12] MEDS ORDERED: BENZOCAINE 20% AER SPR 82.5 GM CAN EXT PRN (18:42)
[2020-12-12] MEDS ORDERED: DIPHTHERIA/TETANUS/PERTUSSIS 0.5 ML SYR/VIAL IM ONE (18:42)
[2020-12-12] MEDS: DOCUSATE SODIUM 100 MG CAP PO SCH (20:51)
--- NOTE | 2020-12-13 06:38 | Obstetrical Progress Note ---
Date of Service <Alexis Garrison MD - Last Filed: 12/13/20 07:07> December 13, 2020 Assessment & Plan <Alexis Garrison MD - Last Filed: 12/13/20 07:07> (1) Post-dates : - PNL: Rh neg (rhogam prior to discharge), RI, GBS pos (intrapartum PCN), COVID neg - Feels well today. Eating well, voiding well, ambulating well - Pain well controlled with ibuprofen 600mg Q4H PRN - Routine care -- OOB, ambulation, diet progression as tolerated - After discharge will have 6 week follow-up with Dr. Hernandez. (2) Group beta Strep positive: Subjective <Alexis Garrison MD - Last Filed: 12/13/20 07:07> Radha is a 30 y/o female who is PPD #1 following at 40+ weeks. She reports feeling well overall this morning. Moderate abdominal cramping and 5/10 pain well managed on analgesics. Voiding well. Tolerating meals overnight without difficulty. Patient has been able to ambulate some. Is passing gas and had a small bowel movement. Has persistent lochia with some improvement this morning. Currently . Review of Systems Denies fever or chills. Denies shortness of breath or cough. Denies chest pain. Denies breast pain. Denies dysuria. Denies leg pain or leg swelling. Denies headache or changes in vision. Physical Exam <Alexis Garrison MD - Last Filed: 12/13/20 07:07> General: Alert, oriented. No acute distress. Cardiac: Regular rate and rhythm. No murmurs. Respiratory: Clear to auscultation bilaterally a/p, no wheezes/rales/rhonchi. No increased work of breathing. Symmetrical chest rise. No respiratory distress. Abdomen: Soft, nontender, nondistended. Bowel sounds present. Uterus: Uterine fundus firm, palpable 1 cm below umbilicus. Lower Extremities: No lower extremity edema or swelling. No deep calf pain. Brian's negative bilaterally. Results & Data ([facility]) <Alexis Garrison MD - Last Filed: 12/13/20 07:07> Vital Signs (Past 12 Hours) Vital Signs Temp Pulse Pulse Resp BP BP Pulse Ox 12/13/20 04:15 36.8 C 112 H 18 125/68 12/12/20 23:50 36.5 C 99 H 18 116/70 12/12/20 20:54 36.9 C 108 H 18 131/80 97 12/12/20 20:02 110 H 139/74 97 12/12/20 19:57 112 H 97 12/12/20 19:52 106 H 96 12/12/20 19:47 107 H 18 136/73 97 12/12/20 19:42 102 H 98 12/12/20 19:37 104 H 98 12/12/20 19:32 102 H 137/78 97 12/12/20 19:27 107 H 97 12/12/20 19:22 106 H 97 12/12/20 19:17 114 H 18 131/73 97 12/12/20 19:12 105 H 96 12/12/20 19:07 105 H 96 12/12/20 19:02 109 H 138/67 98 12/12/20 18:57 109 H 96 12/12/20 18:52 101 H 97 12/12/20 18:47 103 H 18 128/73 97 12/12/20 18:42 116 H 97 <Tanja Hernandez MD, FACOG - Last Filed: 12/13/20 07:11> Co-Signing Physician Notes Resident Physician Supervision Note: I was present with Dr. Aviles during the history and exam. I discussed the case with the resident and agree with the findings and plan as documented in the note . Any exceptions or clarifications are listed here: pt noting some weakness of right upper leg when trying to get out of bed, then once ambulating feels its normal. 2nd stage was <1hr. otherwise eating, voiding without problem. breast feeding, will need rhophylac. ff 2 down, nt. ext nt calves. will see how leg movement improves thor. may decide to go home later today. instructions reviewed. f/u 6 wk pp check. Documented By: Tanja Hernandez MD, FACOG Resident Activity Tracking <Alexis Garrison MD - Last Filed: 12/13/20 07:07> Resident Involvement: Resident Care Provided Care Provided: OB Delivery
[2020-12-13] MEDS: DOCUSATE SODIUM 100 MG CAP PO SCH ×2 (08:27→22:39)
[2020-12-13] MEDS: IBUPROFEN 600 MG TAB PO PRN ×2 (08:28→17:46)
--- NOTE | 2020-12-14 05:48 | Obstetrical Progress Note ---
Date of Service <Alexis Garrison MD - Last Filed: 12/14/20 06:13> December 14, 2020 Assessment & Plan <Alexis Garrison MD - Last Filed: 12/14/20 06:13> (1) Post-dates : - PNL: Rh neg (rhogam prior to DC), RI, GBS pos (intrapartum PCN received), COVID neg - Feels well today. Eating well, voiding well, ambulating well - Pain well controlled with ibuprofen 600mg Q4H PRN - Routine care -- OOB, ambulation, diet progression as tolerated - After discharge will have 6 week follow-up with Dr. Hernandez (2) Group beta Strep positive: Subjective <Alexis Garrison MD - Last Filed: 12/14/20 06:13> Radha is a 30 y/o female who is PPD #2 following at 40+ weeks. She reports feeling well overall this morning. Light abdominal cramping and 2/10 pain well managed on analgesics. Voiding well. Tolerating meals overnight without difficulty. Patient has been able to ambulate some. Is passing gas and has had a bowel movement. Has persistent lochia with some improvement this morning. Currently well. Review of Systems Denies fever or chills. Denies shortness of breath or cough. Denies chest pain. Denies breast pain. Denies dysuria. Denies leg pain or leg swelling. Denies headache or changes in vision. Physical Exam <Alexis Garrison MD - Last Filed: 12/14/20 06:13> General: Alert, oriented. No acute distress. Cardiac: Regular rate and rhythm. No murmurs. Respiratory: Clear to auscultation bilaterally a/p, no wheezes/rales/rhonchi. No increased work of breathing. Symmetrical chest rise. No respiratory distress. Abdomen: Soft, nontender, nondistended. Bowel sounds present. Uterus: Uterine fundus firm, palpable 2 cm below umbilicus. Lower Extremities: No lower extremity edema or swelling. No deep calf pain. Brian's negative bilaterally. Results & Data ([facility]) <Alexis Garrison MD - Last Filed: 12/14/20 06:13> Vital Signs (Past 12 Hours) Vital Signs Temp Pulse Resp BP BP 12/14/20 01:00 36.9 C 94 H 18 122/81 12/13/20 19:10 36.6 C 101 H 20 124/75 <Smitha Villa MD - Last Filed: 12/14/20 06:48> Co-Signing Physician Notes Resident Physician Supervision Note: I interviewed and examined the patient. Discussed with Dr. Aviles and agree with findings and plan as documented in the note. Any exceptions or clarifications are listed here: PP2, doing well, meeting milestones. No longer having the leg pain from yesterday morning. Exam benign, fundus firm and NT at umbilicus. Stable for d/c home today Documented By: Smitha Villa MD Resident Activity Tracking <Alexis Garrison MD - Last Filed: 12/14/20 06:13> Resident Involvement: Resident Care Provided Care Provided: OB Delivery
[2020-12-14] MEDS: DOCUSATE SODIUM 100 MG CAP PO SCH (09:34)
[2020-12-14] MEDS: IBUPROFEN 600 MG TAB PO PRN (09:34)
--- NOTE | 2020-12-19 12:15 | Coding Query ---
CODING QUERY To promote full compliance with coding requirements relating to patient care, provider participation is requested in all cases of seo executive uncertainty. Please assist us with the question(s) below: Coding Question(s): The Vaginal Delivery Summary on 12/12/20 documents, " and 2nd Degree LAC" and the description of the procedure documents, " and 2nd Degree LAC" and also, "Cervix and sulci intact. Episotomy did not extend and was reapproximated in layers in the routine fashion with 3-0 vicryl" and there is no documentation of the 2nd degree laceration or repair of the 2nd degree laceration in the procedure description. Please specify below. ( ) 2nd degree laceration and repair was done ( ) No 2nd degree laceration ( ) Episiotomy did extend to 2nd degree laceration and was repaired ( x) Other: Please specify episiotomy repair was lac repair same thing Physician's Response(s): Thank you Twyla Resendez Principal Diagnosis: "that condition established after study, to be chiefly responsible for occasioning the admission of the patient to the hospital for care." Co-Existing Principal Diagnosis: "when two or more diagnoses equally meet the criteria for principal diagnosis as determined by the circumstances of admission, diagnostic work up, and/or therapy provided, and the Alphabetic Index, Tabular List, or another coding guideline does not provide sequencing direction, any one of the diagnoses may be sequenced first." "When the physician has documented what appears to be a current diagnosis in the body of the record, but has not included the diagnosis in the final diagnostic statement, the physician should be asked whether the diagnosis should be added." (Source Coding [facility] 2 QTR90. p3-4) SVEND
== END 2020-12-14 10:55 | disposition home or self-care (01) | DRG 807 ==
LOC: 4S1 07:43 → 4S2 20:30

== ENCOUNTER 2022-05-21 08:29 | Inpatient (IN) ==
[2022-05-21] MEDS ORDERED: OXYTOCIN 30 UNITS/500 ML BAG IV PRN ×3 (08:33→18:17)
[2022-05-21] MEDS ORDERED: PENICILLIN G POTASSIUM 6 MU in DEXTROSE 5% 250 ML IV STA (08:38)
--- NOTE | 2022-05-21 08:54 | History & Physical Report ---
Date of Service May 21, 2022 Assessment & Plan (1) Encounter for induction of labor: (2) LGA (large for gestational age) fetus affecting management of mother: (3) History of shoulder dystocia in prior : (4) 39 weeks gestation of : (5) Pain of left calf: Plan admit, iv, start pcn for gbs. will get duplex LLE venous, to evaluate for dvt but suspect at most superficial thrombophlebitis. will await those results before starting pitocin. bedside imaging ordered. plan pitocin induction. pt aware of risk of shoulder dystocia and limitations to our knowledge that this could occur, be damaging to fetus and she does have h/o this with prior delivery. she has been offered direct c/s today and previously and declines. fhts categ 1. Addendum: duplex LLE was negative. start induction. Admission and Anticipated Discharge Date Admission Date: May 21, 2022 History of Present Illness Chief Complaint: planned induction Primary Care Provider: Jose Manuel Graham 31yo at 39+wks ega presents to L&D for planned induction, with LGA. Patient noting new onset left superficial tender spot on inner calf. Started yesterday. Has history of Left LE grafts due to sarcoma of thigh and recent normal yearly routine arterial imaging of LE. No calf pain. No unequal swelling. No CP/SOB. Some ctx over past week. no rom, no vb. +FM PNC c/b 1. rh neg, rhogam eval pp 2. LGA last u/s 05/07 efw >98% 3. GBS pos 4. history of prior should dystocia (10+# baby) aware of risks this delivery and offered direct c/s and declines PNL rh neg, ri, gbs pos Allergies Allergy/AdvReac Type Severity Reaction Status Date / Time No Known Drug Allergies Allergy Unknown Verified 05/21/22 08:56 nickel AdvReac Unknown Verified 05/21/22 09:51 Home Medications Medication Instructions Recorded Confirmed Type prenat.vits,oral,aib-kaox-zhels 1 tab PO DAILY 12/12/20 05/21/22 History desoximetasone 0.25 % topical cream 1 applic topical BID PRN Rash 05/21/22 05/21/22 History Patient History Medical History Contact dermatitis H/O sarcoma of soft tissue left thigh 2018 Mass of soft tissue of left lower extremity Surgical History H/O oral surgery [place] teeth History of excision of mass sarcoma removed x2 S/P LASIK surgery of both eyes (~11/05/18) Family History Father Ulcerative colitis Grandmother (Maternal) Breast cancer Denies family history of Ovarian cancer Prostate cancer Diabetes Lung cancer Colorectal cancer Hypertension Social History Smoking Status: Former smoker Second Hand Exposure: No; Hx Alcohol Use: No Hx Substance Use: No Preferred Language: Setswana Communication Ability: Effective Business Loan Processor Required: No Beliefs That Will Affect Care: None marital status: marital status details: Teja (37) [phone] Current Living Situation: Spouse and Family Current Living Situation Comment: FOB, 2 kids and 1 dog current occupational status: employed 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 Feels Safe at Home: Yes Safety Concerns: Feels Safe At This Time Assistive Devices: None Review of Systems as per Subjective / HPI Physical Exam Constitutional: WD/WN, vitals as above Respiratory: normal respiratory effort, lungs clear to auscultation Cardiovascular: Rate/Rhythm: regular rate and regular rhythm Gastrointestinal (Abdomen): soft gravid nt Musculoskeletal: no edema tender left small lump inner left calf, some overlying erythema, no calf te nderness, RLE=LLE Neurologic: grossly normal Psychiatric: A+Ox3, euthymic affect Genitourinary: Manual OB Exam: + cervical dilation 3 cm, + cervical effacement 70% and + station -2 OB Exam Monitor Tracing: + external FHT monitor used, + external uterine monitor used (no ctx), + category I and + normal FHT variability Results & Data ([facility]) Vital Signs (Past 12 Hours) Vital Signs Pulse BP 05/21/22 08:40 98 H 126/77 Coding Level of Care Code None Diagnoses Encounter for induction of labor Z34.90 LGA (large for gestational age) fetus affecting management of mother O36.60X0 History of shoulder dystocia in prior Z87.59 39 weeks gestation of Z3A.39 Pain of left calf M79.583
[2022-05-21] MEDS: LACTATED RINGER'S 1,000 ML IV PRN ×2 (08:55→12:19)
--- NOTE | 2022-05-21 09:46 | Ultrasound Report ---
ULTRASOUND LEFT LOWER EXTREMITY VENOUS CLINICAL HISTORY: Painful lump. COMPARISON STUDY: Left lower extremity venous ultrasound dated 04/20/2022 TECHNIQUE: Real-time, grayscale, and color Doppler sonography of the deep veins of the left lower ext remity was performed from the inguinal crease to the calf. Compression and augmentation were utilized . FINDINGS: There is no sonographic evidence of deep venous thrombosis identified in the left lower ext remity. The common femoral, superficial femoral, and popliteal veins are patent and normally compress ible. The greater saphenous vein and the profunda femoris vein at the junction with the common femora l vein are clear. The visualized calf veins are patent. IMPRESSION: There is no sonographic evidence of deep venous thrombosis identified in the left lower e xtremity. ACT 112: Negative or not required by law. Electronically signed by: Rigo Sibley M.D. 05/21/2022 9:45 AM
[2022-05-21 09:58] LABS: Mean Corpuscular Hemoglobin 29.1 pg (25.0-34.0); Mean Corpuscular Hgb Conc 34.3 g/dL (32.0-36.0); Mean Corpuscular Volume 84.7 fL (80.0-100.0); Mean Platelet Volume 11.3 fL (9.4-12.3); Platelet Count 217 K/uL (130-400); RDW Coefficient of Variation 13.4 % (11.5-14.5); RDW Standard Deviation 41.5 fL (36.4-46.3); Red Blood Count 4.13 M/uL (3.93-5.22); White Blood Count 8.97 K/ul (4.8-10.8)
[2022-05-21] MEDS ORDERED: LIDOCAINE 2%/EPINEPHRINE 1:200,000 20 ML SDV ONE (11:50)
[2022-05-21] MEDS ORDERED: ePHEDrine sulfate 50 MG/ML AMP ONE (11:50)
[2022-05-21] MEDS ORDERED: fentaNYL citrate 100 MCG/2 ML VIAL ONE (11:50)
[2022-05-21] MEDS ORDERED: BUPIVACAINE 0.25% 30 ML VIAL ONE (11:50)
[2022-05-21] MEDS ORDERED: SODIUM CHLORIDE 0.9% INJ 10 ML VIAL ONE (11:50)
[2022-05-21] MEDS ORDERED: fentaNYL 2MCG/ML ROPIVACAINE 1.25MG/ML 100 ML BAG EPI ONE (11:51)
[2022-05-21] MEDS ORDERED: NALOXONE HCL 0.4 MG/1 ML VIAL/CARP IV PRN (12:11)
[2022-05-21] MEDS ORDERED: fentaNYL 2MCG/ML ROPIVACAINE 1.25MG/ML 100 ML BAG EPI PRN (12:11)
[2022-05-21] MEDS ORDERED: ePHEDrine sulfate 50 MG/ML AMP IV PRN (12:11)
[2022-05-21] MEDS ORDERED: diphenhydrAMINE 50 MG/ML VIAL IV PRN (12:11)
[2022-05-21] MEDS ORDERED: ONDANSETRON INJ 2 MG/ML 2 ML VIAL IV PRN (12:11)
[2022-05-21] MEDS ORDERED: NALOXONE HCL 1 MG in SODIUM CHLORIDE 0.9% 1000ML 1,000 ML IV PRN (12:11)
[2022-05-21] MEDS ORDERED: NALBUPHINE HCL INJ 10 MG/ML AMP IV PRN (12:11)
--- NOTE | 2022-05-21 12:13 | Anesthesiology Consultation ---
Date of Service May 21, 2022 Assessment & Plan Chart Review Chart Review: Patient NOT seen in Pre Admission Testing and Acceptable Risk for Labor Epidural Consults Requested none ASA ASA2 Proposed Anesthesia Anesthesia Type: Labor Epidural and CSE Risk / Benefits Reviewed With: PT / POA / Parent / Guardian, Accepts Plan and Informed Consent Obtained History Height/Weight Height: 5 ft 6 in Weight: 92.079 kg Allergies Allergy/AdvReac Type Severity Reaction Status Date / Time No Known Drug Allergies Allergy Unknown Verified 05/21/22 08:56 nickel AdvReac Unknown Verified 05/21/22 09:51 Medications Home Medications Medication Instructions Recorded Confirmed Last Taken prenat.vits,oral,wxr-crrr-opoou 1 tab PO DAILY 12/12/20 05/21/22 05/18/22 08:00 desoximetasone 0.25 % topical cream 1 applic topical BID PRN Rash 05/21/22 05/21/22 Unknown Active Medications Generic Name Dose Route Start Last Admin Trade Name Freq PRN Reason Stop Dose Admin Oxytocin 30 units in 500 mls @ 9 mls/hr 05/21/22 08:33 05/21/22 11:45 Pitocin IV 05/23/22 08:32 0.54 units/hr .Q24H PRN 9 mls/hr Labor Induction/Augmentation Titration Protocol 0.54 UNITS/HR Lactated Ringer's 1,000 mls @ 125 mls/hr 05/21/22 08:33 05/21/22 10:20 Lr IV 05/23/22 08:32 125 mls/hr .Q8H PRN Infusion L&D Protocol Protocol NPO Date Last Intake of Fluids: 05/21/22 Time Last Intake of Fluids: 10:00 Date Last Intake of Solids: 05/21/22 Time Last Intake of Solids: 07:00 Past Medical History Medical History Contact dermatitis H/O sarcoma of soft tissue left thigh 2018 Mass of soft tissue of left lower extremity Exercise / Class Metabolic Activity II 4-5 Yardwork/Stairs/Walk up hill Past Family History Family History Father Ulcerative colitis Grandmother (Maternal) Breast cancer Denies family history of Ovarian cancer Prostate cancer Diabetes Lung cancer Colorectal cancer Hypertension Past Surgical History Surgical History H/O oral surgery [place] teeth History of excision of mass sarcoma removed x2 S/P LASIK surgery of both eyes (~11/05/18) Past Anesthesia History No Hx of Anesthesia Complications and No Family Hx of Anesthesia Complications History of PONV No Hx of PONV and No Hx of Motion Sickness Social History Smoking Status: Former smoker Hx Alcohol Use: No Hx Substance Use: No substance use type: does not use Review of Systems no chest pain or sob Physical Exam Vital Signs Last Vital Signs Temp 36.6 C 05/21/22 09:55 Pulse 75 05/21/22 12:07 Resp 18 05/21/22 09:55 BP 112/64 05/21/22 11:46 Pulse Ox 98 05/21/22 12:07 ENMT Mouth: no TMJ abnormality Thyromental Distance: > or= 3.5 Finger Breadths Mallampati Class: II Neck normal visual inspection Respiratory normal respiratory effort Auscultation: lungs clear to auscultation bilaterally Cardiovascular Rate/Rhythm: regular rate and regular rhythm Musculoskeletal Spine: normal cervical ROM Neurologic moves all extremities Psychiatric Orientation: alert and oriented x 3 Testing Laboratory Results 05/21/22 09:41
[2022-05-21] MEDS: PENICILLIN G POTASSIUM 3 MU in DEXTROSE 5% 100 ML IV PRN ×2 (12:28→16:30)
--- NOTE | 2022-05-21 14:41 | Labor Progress Brief Note ---
Date of Service May 21, 2022 Subjective no complaints. Assessment & Plan (1) 39 weeks gestation of : (2) LGA (large for gestational age) fetus affecting management of mother: (3) History of shoulder dystocia in prior : (4) Encounter for induction of labor: (5) Carrier of group B Streptococcus: Plan will see how arom helps labor pattern, c/w pit. fhts categ 1. Admission and Anticipated Discharge Date Admission Date: May 21, 2022 Physical Exam Constitutional: WD/WN, vitals as above Genitourinary: Manual OB Exam: + cervical dilation 4 cm, + cervical effacement (75%), + station (anterior) -2 and + amniotic fluid (arom) clear OB Exam Monitor Tracing: + external FHT monitor used, + external uterine monitor used (q2-5, pit at 19), + category I and + normal FHT variability Results & Data ([facility]) Vital Signs (Past 12 Hours) Vital Signs Temp Pulse Resp BP Pulse Ox 05/21/22 09:55 97.9 F 98 H 18 126/77 05/21/22 14:38 78 98 05/21/22 14:36 69 95/52 L 05/21/22 14:33 69 98 05/21/22 14:28 75 99 05/21/22 14:23 73 97 05/21/22 14:20 76 109/65 05/21/22 14:18 82 97 05/21/22 14:14 18 05/21/22 14:14 98.1 F 18 05/21/22 14:13 68 98 05/21/22 14:08 72 98 05/21/22 14:05 98.1 F 78 16 121/73 05/21/22 14:03 86 97 05/21/22 13:58 80 97 05/21/22 13:53 75 94/53 L 99 05/21/22 13:50 72 89/52 L 05/21/22 13:48 79 98 05/21/22 13:43 75 98 05/21/22 13:38 79 99 05/21/22 13:35 69 18 90/53 L 05/21/22 13:33 74 97 05/21/22 13:28 74 97 05/21/22 13:23 96 H 99 05/21/22 13:21 85 126/67 05/21/22 13:18 84 98 05/21/22 13:13 74 98 05/21/22 13:07 81 98 05/21/22 13:06 75 130/81 05/21/22 13:02 76 98 05/21/22 12:57 84 98 05/21/22 12:52 76 98 05/21/22 12:51 73 158/70 H 05/21/22 12:47 82 97 05/21/22 12:42 81 97 05/21/22 12:30 18 05/21/22 12:30 97.9 F 18 05/21/22 12:37 76 97 05/21/22 12:32 78 98 05/21/22 12:29 74 105/63 05/21/22 12:27 79 98 05/21/22 12:24 81 114/61 05/21/22 12:22 82 99 05/21/22 12:17 89 99 05/21/22 12:16 90 92 05/21/22 12:12 81 99 05/21/22 12:07 75 98 05/21/22 12:02 79 100 05/21/22 11:46 83 112/64 05/21/22 10:18 83 111/72 05/21/22 08:45 18 05/21/22 08:45 97.9 F 18 05/21/22 08:40 98 H 126/77 Coding Level of Care Code None Diagnoses 39 weeks gestation of Z3A.39 LGA (large for gestational age) fetus affecting management of mother O36.60X0 History of shoulder dystocia in prior Z87.59 Encounter for induction of labor Z34.90 Carrier of group B Streptococcus Z22.330
--- NOTE | 2022-05-21 17:12 | Labor Progress Brief Note ---
Date of Service May 21, 2022 Subjective comfortable with epidural Assessment & Plan (1) 39 weeks gestation of : (2) History of shoulder dystocia in prior : (3) LGA (large for gestational age) fetus affecting management of mother: (4) Encounter for induction of labor: (5) Carrier of group B Streptococcus: Plan good progress, station still -2. c/w pit. fhts categ 1. Admission and Anticipated Discharge Date Admission Date: May 21, 2022 Physical Exam Constitutional: WD/WN, vitals as above Genitourinary: Manual OB Exam: + cervical dilation 8 cm, + cervical effacement 80% and + station -2 OB Exam Monitor Tracing: + external FHT monitor used, + external uterine monitor used (q2-3), + category I and + normal FHT variability Results & Data ([facility]) Vital Signs (Past 12 Hours) Vital Signs Temp Pulse Resp BP Pulse Ox 05/21/22 09:55 97.9 F 98 H 18 126/77 05/21/22 17:08 72 97 05/21/22 17:05 75 110/59 L 05/21/22 17:03 76 97 05/21/22 16:58 82 97 05/21/22 16:53 73 98 05/21/22 16:49 68 90/50 L 05/21/22 16:48 74 98 05/21/22 16:43 79 98 05/21/22 16:38 67 98 05/21/22 16:35 98.1 F 64 18 94/51 L 05/21/22 16:33 69 98 05/21/22 16:28 77 98 05/21/22 16:23 81 97 05/21/22 16:19 91 H 101/63 05/21/22 16:18 66 98 05/21/22 16:13 75 97 05/21/22 16:08 90 97 05/21/22 16:07 75 108/64 05/21/22 16:03 78 97 05/21/22 15:58 76 97 05/21/22 15:53 76 97 05/21/22 15:49 72 95/55 L 05/21/22 15:48 65 97 05/21/22 15:43 69 96 05/21/22 15:30 18 05/21/22 15:30 98.1 F 18 05/21/22 15:38 71 98 05/21/22 15:36 72 94/53 L 05/21/22 15:33 76 96 05/21/22 15:28 84 97 05/21/22 15:23 68 97 05/21/22 15:21 75 101/57 L 05/21/22 15:18 72 97 05/21/22 15:13 86 98 05/21/22 15:08 68 98 05/21/22 15:04 75 94/52 L 05/21/22 15:03 73 97 05/21/22 14:58 68 98 05/21/22 14:53 72 98 05/21/22 14:51 66 105/56 L 05/21/22 14:48 69 98 05/21/22 14:43 85 98 05/21/22 14:38 78 98 05/21/22 14:36 69 95/52 L 05/21/22 14:33 69 98 05/21/22 14:28 75 99 05/21/22 14:23 73 97 05/21/22 14:20 76 109/65 05/21/22 14:18 82 97 05/21/22 14:14 18 05/21/22 14:14 98.1 F 18 05/21/22 14:13 68 98 05/21/22 14:08 72 98 05/21/22 14:05 98.1 F 78 16 121/73 05/21/22 14:03 86 97 05/21/22 13:58 80 97 05/21/22 13:53 75 94/53 L 99 05/21/22 13:50 72 89/52 L 05/21/22 13:48 79 98 05/21/22 13:43 75 98 05/21/22 13:38 79 99 05/21/22 13:35 69 18 90/53 L 05/21/22 13:33 74 97 05/21/22 13:28 74 97 05/21/22 13:23 96 H 99 05/21/22 13:21 85 126/67 05/21/22 13:18 84 98 05/21/22 13:13 74 98 05/21/22 13:07 81 98 05/21/22 13:06 75 130/81 05/21/22 13:02 76 98 05/21/22 12:57 84 98 05/21/22 12:52 76 98 05/21/22 12:51 73 158/70 H 05/21/22 12:47 82 97 05/21/22 12:42 81 97 05/21/22 12:30 18 05/21/22 12:30 97.9 F 18 05/21/22 12:37 76 97 05/21/22 12:32 78 98 05/21/22 12:29 74 105/63 05/21/22 12:27 79 98 05/21/22 12:24 81 114/61 05/21/22 12:22 82 99 05/21/22 12:17 89 99 05/21/22 12:16 90 92 05/21/22 12:12 81 99 05/21/22 12:07 75 98 05/21/22 12:02 79 100 05/21/22 11:46 83 112/64 05/21/22 10:18 83 111/72 05/21/22 08:45 18 05/21/22 08:45 97.9 F 18 05/21/22 08:40 98 H 126/77 Coding Level of Care Code None Diagnoses 39 weeks gestation of Z3A.39 History of shoulder dystocia in prior Z87.59 LGA (large for gestational age) fetus affecting management of mother O36.60X0 Encounter for induction of labor Z34.90 Carrier of group B Streptococcus Z22.330
[2022-05-21] MEDS ORDERED: ERYTHROMYCIN OP OINT 1 GM PKT ONE (17:55)
--- NOTE | 2022-05-21 18:02 | Delivery Summary ---
Vaginal Delivery Summary Date of Service May 21, 2022 Vaginal Delivery Summary and 2nd Degree LAC The patient dilated to complete and pushed to deliver a viable female infant Apgars 8 and 9 via over 2nd degree perineal laceration. Mouth and nose bulb suctioned at perineum. Shoulders and body delivered with ease. was vigorous and crying at . Cord clamped at 30 seconds of life and to maternal abdomen where the cord was then doubly clamped and cut. Placenta delivered spontaneously and intact, three-vessel cord. Hemostasis achieved with dilute pitocin and uterine massage and drainage of the bladder for approximately 250 cc under sterile conditions. Laceration repaired in usual fashion with 4-0 and 3-0 vicryl. Left labia laceration reapproximated with 4-0 vicryl. Cervix and sulci intact. EBL 300 cc. Mother and baby stable in recovery. [facility] [place] Vaginal Delivery Charge Delivery Type Details: and 2nd Degree LAC
[2022-05-21] MEDS ORDERED: ACETAMINOPHEN 325 MG TAB PO PRN (18:17)
[2022-05-21] MEDS ORDERED: HYDROCORTISONE ACETATE 25 MG SUPP PR PRN (18:17)
[2022-05-21] MEDS ORDERED: oxyCODONE/ACETAMINOPHEN 5mg/325mg TAB PO PRN (18:17)
[2022-05-21] MEDS ORDERED: DIPHTHERIA/TETANUS/PERTUSSIS 0.5 ML SYR/VIAL IM ONE (18:17)
[2022-05-21] MEDS ORDERED: BENZOCAINE 20% AER SPR 82.5 GM CAN EXT PRN (18:17)
[2022-05-21] MEDS ORDERED: OXYTOCIN 20 UNITS in LACTATED RINGER'S 1,000 ML IV SCH (18:30)
--- NOTE | 2022-05-21 19:14 | Anesthesia Procedure Note ---
Date of Service May 21, 2022 Anesthesia Post Epidural Note Vital Signs Vital Signs: Temp Pulse Resp BP Pulse Ox 36.7 C 91 H 20 117/65 98 05/21/22 18:00 05/21/22 19:09 05/21/22 19:00 05/21/22 19:00 05/21/22 19:09 Notes Mental Status: alert / awake / arousable and participated in evaluation Nausea / Vomiting: adequately controlled Pain: adequately controlled Airway Patency, RR, SpO2: stable & adequate BP & HR: stable & adequate Hydration State: stable & adequate Neuraxial Anesthesia: was administered and sensory block is resolving Anesthetic Complications: no major complications apparent and Pt Satisfied with anesthetic care Epidural: Removed without complications and With tip intact
[2022-05-21] MEDS: IBUPROFEN 600 MG TAB PO PRN (21:00)
[2022-05-21] MEDS: DOCUSATE SODIUM 100 MG CAP PO SCH (21:00)
[2022-05-22] MEDS: IBUPROFEN 600 MG TAB PO PRN ×4 (04:30→19:58)
--- NOTE | 2022-05-22 07:35 | Obstetrical Progress Note ---
Date of Service May 22, 2022 Assessment & Plan (1) Encounter for care and examination after delivery: Plan stable, doing well pp. routine care. 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 rh neg, baby rh pos, needs rhogam, ri, . Day #:: 1 Subjective Ambulation: ambulating normally Voiding: no voiding problems Diet Tolerance:: regular diet Lochia:: Small Feeding Type:: breast feeding no complaints. right calf tender spot not as bad Constitutional: + as per Subjective / HPI Physical Exam Constitutional WD/WN, vitals as above Respiratory normal respiratory effort, lungs clear to auscultation Cardiovascular Rate/Rhythm: regular rate and regular rhythm Gastrointestinal (Abdomen) Inspection/Auscultation: abdomen normal to inspection Percussion/Palpation: abdomen soft Fundus firm 2cm down Musculoskeletal nt calves no edema left side of calf tender spot with dec erythema and less tender Neurologic grossly normal Psychiatric A+Ox3, euthymic affect Results & Data ([facility]) Vital Signs (Past 12 Hours) Vital Signs Temp Pulse Pulse Resp BP BP Pulse Ox 05/22/22 04:25 97.9 F 92 H 16 113/72 98 05/22/22 01:15 97.7 F 85 16 100/65 98 05/21/22 20:50 98.1 F 93 H 16 113/70 98 05/21/22 20:00 98.2 F 20 05/21/22 20:04 92 H 97 05/21/22 20:00 90 112/57 L 05/21/22 19:59 94 H 97 05/21/22 19:54 91 H 97 05/21/22 19:49 96 H 98 05/21/22 19:44 90 97 05/21/22 19:45 84 106/57 L 05/21/22 19:39 89 97 O2 Del Method 05/22/22 04:25 Room Air 05/22/22 01:15 Room Air 05/21/22 20:50 Room Air 05/21/22 20:00 05/21/22 20:04 05/21/22 20:00 05/21/22 19:59 05/21/22 19:54 05/21/22 19:49 05/21/22 19:44 05/21/22 19:45 05/21/22 19:39
[2022-05-22] MEDS: PRENATAL VITAMIN 1 TAB PO SCH (08:27)
[2022-05-22] MEDS: DOCUSATE SODIUM 100 MG CAP PO SCH ×2 (08:27→19:59)
[2022-05-22] MEDS: ASPIRIN 81 MG ECTAB PO SCH (09:38)
[2022-05-23] MEDS: IBUPROFEN 600 MG TAB PO PRN ×2 (04:35→08:31)
--- NOTE | 2022-05-23 07:16 | Obstetrical Progress Note ---
Date of Service May 23, 2022 Assessment & Plan (1) Encounter for care and examination after delivery: Doing well day 2, OK for discharge home. Continue baby ASA for ?superficial thrombophlebitis, improved. Subjective Ambulation: ambulating normally Voiding: no voiding problems Passing Gas:: Yes Diet Tolerance:: regular diet Lochia:: Small Feeding Type:: breast feeding Current Pain Level(1-10): 0 Physical Exam Constitutional WD/WN, vitals as above Eyes PERRL, conjunctivae normal, anicteric sclerae ENMT external ear and nose normal, oropharynx normal Neck trachea midline, no thyromegaly Respiratory normal respiratory effort and able to speak in complete sentences; no respiratory distress, no labored breathing and does not use accessory muscles Cardiovascular Rate/Rhythm: regular rate and regular rhythm Extremities: no calf tenderness and no pedal edema Chest (Breasts) Breast: normal inspection of breasts Gastrointestinal (Abdomen) Inspection/Auscultation: abdomen normal to inspection; abdomen not distended Musculoskeletal no cyanosis or clubbing, extremities motor strength 5/5 Skin no rashes, warm and dry L medial calf small "knot" still present but smaller, less tender, no redness now Neurologic patellar DTR's 2+ bilat, sensation intact Psychiatric A+Ox3, euthymic affect Genitourinary Speculum/Bimanual Exam: uterus nontender OB Exam Abdomen: + fundal height (at umbilicus) Fundus: + firm Results & Data ([facility]) Vital Signs (Past 12 Hours) Vital Signs Temp Pulse Resp BP O2 Del Method 05/23/22 00:00 98.1 F 83 16 100/63 Room Air 05/22/22 20:00 98.1 F 87 18 96/61 L Room Air
[2022-05-23] MEDS: DOCUSATE SODIUM 100 MG CAP PO SCH (07:44)
[2022-05-23] MEDS: PRENATAL VITAMIN 1 TAB PO SCH (07:44)
[2022-05-23] MEDS: ASPIRIN 81 MG ECTAB PO SCH (08:31)
== END 2022-05-23 10:30 | disposition home or self-care (01) | DRG 807 ==
LOC: 4S1 08:29 → 4E2 20:52
DX: M79.662 Pain in left lower leg; O70.1 Second degree perineal laceration during delivery; Z87.891 Personal history of nicotine dependence; Z87.59 Personal history of other complications of pregnancy, childbirth and the puerperium; Z37.0 Single live birth; O99.824 Streptococcus B carrier state complicating childbirth; O99.892 Other specified diseases and conditions complicating childbirth; Z91.09 Other allergy status, other than to drugs and biological substances; O36.63X0 Maternal care for excessive fetal growth, third trimester, not applicable or unspecified; Z3A.39 39 weeks gestation of pregnancy; O70.0 First degree perineal laceration during delivery